=== PATIENT | female | born 1975 | race Caucasian/White ===

== ENCOUNTER → 2018-04-05 | Outpatient (CLI) | payer BC ==
--- NOTE | ~2018-04-05 | EKG ---
[address] [place] [address] ELECTROCARDIOGRAM REPORT Name: [place] FALK Room #: [facility] [id number] Admission: 04/05/18 Attend Phys: Bob Moran MD, F Discharge: Date of : 71 Report #: [id number] THIS REPORT FOR: //name// [facility] Test Date: 2018-04-05 Test Time: 11:34:47 Pat Name: FLOR[place] FALK Department: Room: Gender: F Oil Painter: Casey MCCLURE : 1975 Requested By: Bob Moran Order Number: [id number] MD: Himanshu Saab Measurements Intervals [place] Rate: 83 P: 66 LA: 138 QRS: 52 QRSD: 94 T: 26 QT: 374 QTc: 440 Interpretive Statements Sinus rhythm Nonspecific ST/T wave abnormalities No previous ECG available for comparison Electronically Signed On 04-05-2018 15:01:58 [employer] by Himanshu Saab [email or web address] <ELECTRONICALLY SIGNED> By: Himanshu Saab MD 04/05/18 1501 1134 [id number] Himanshu Saab MD /[email or web address]
[2018-04-05 11:08] LABS: ABSOLUTE NEUTROPHILS 5.8 thou/uL (1.4-8.2); BASOPHILS 1.3 % (0.0-2.0); EOSINOPHILS 0.5 % (0.0-3.0); HEMATOCRIT 44.1 % (37.0-47.0); HEMOGLOBIN 14.7 gm/dL (12.0-15.0); LYMPHOCYTES 29.9 % (24.0-44.0); MCH 28.9 pg (26.0-34.0); MCHC 33.3 g/dL (28.0-37.0); MCV 86.7 fL (80.0-100.0); MONOCYTES 9.4 % (1.0-8.0); PLATELET COUNT 349 thou/uL (150-400); POLYS 58.9 % (36.0-66.0); RBC 5.09 mil/uL (4.20-5.00); RDW 13.6 % (10.5-14.5); WBC 9.9 thou/uL (4.0-11.0)
[2018-04-05 11:24] LABS: ALBUMIN 3.8 g/dL (3.4-5.0); CALCIUM 9.3 mg/dL (8.5-10.1); CREATININE 0.9 mg/dL (0.6-1.0); POTASSIUM 4.7 mmol/L (3.5-5.1); TOTAL BILIRUBIN 0.3 mg/dL (<0.1-1.0); TOTAL PROTEIN 7.5 g/dL (6.4-8.2)
== END ==
LOC: RAD 10:31
PROVIDERS: Surgery
DX: Z01.818 Encounter for other preprocedural examination (principal); R07.9 Chest pain, unspecified